=== PATIENT | female | born 1975 | race African-American/Black ===

== ENCOUNTER 2016-09-15 18:17 | Emergency (ER) | payer MEDICAID ==
[~2016-09-15] VITALS: Ht 170.2 cm; Wt 81.6 kg
[2016-09-15] MEDS ORDERED: Lidocaine 2% Visc 15ml soln ORAL ONE (18:45)
[2016-09-15] MEDS ORDERED: Dicyclomine HCl 10mg/5ml oral soln ORAL ONE (18:45)
[2016-09-15] MEDS ORDERED: Mylanta II UD 30ml ORAL ONE (18:45)
--- NOTE | 2016-09-15 18:50 | Emergency Room Report ---
History of Present Illness General Chief Complaint: Abdominal Pain Source: Patient Present Illness HPI The patient is a 41-year-old female who denies any medical history presenting for upper abdominal pain which began 2 days prior. The patient states the pain is described as a 5/10 upper abdominal dull ache and also experiences burning which starts in the abdomen and goes up to the chest. The patient denies known history of GERD. The patient states pain is worsened with food. The patient denies nausea, vomiting, fever, chills, flank pain, vaginal discharge, dysuria, hematuria, shortness of breath, numbness tingling Allergies: Coded Allergies: No Known Allergies (Unverified , 12/27/15) Patient History Past Medical History: see triage record Pertinent Family History: none Last Menstrual Period: 09/08/16 Now: No Reviewed Nursing Documentation: PMH: Agreed, PSxH: Agreed Nursing Documentation-PMH Past Medical History: No Stated History Review of Systems All Other Systems: negative except mentioned in HPI Physical Exam Vital Signs Date Time Temp Pulse Resp B/P Pulse Ox O2 Delivery O2 Flow Rate FiO2 09/15/16 18:21 97.9 65 17 110/62 97 Room Air Sp02 EP Interpretation: reviewed, normal General Appearance: no apparent distress, alert, GCS 15, non-toxic Head: normocephalic, atraumatic Eyes: bilateral eye PERRL, bilateral eye normal inspection ENT: hearing grossly normal, normal pharynx, no angioedema, normal voice Neck: full range of motion, supple/symm/no masses Respiratory: chest non-tender, lungs clear, normal breath sounds, speaking full sentences Cardiovascular #1: regular rate, rhythm, no edema Cardiovascular #2: 2+ carotid (R), 2+ carotid (L), 2+ radial (R), 2+ radial (L) , 2+ dorsalis pedis (R), 2+ dorsalis pedis (L) Gastrointestinal: normal bowel sounds, soft, non-distended, no guarding, no rebound, tenderness - epigastric Rectal: deferred Genitourinary: normal inspection, no CVA tenderness Musculoskeletal: back normal, gait/station normal, normal range of motion, non- tender Neurologic: alert, oriented x3, responsive, motor strength/tone normal, sensory intact, speech normal Psychiatric: judgement/insight normal, memory normal, mood/affect normal, no suicidal/homicidal ideation Reflexes: 3+ bicep (R), 3+ bicep (L), 3+ tricep (R), 3+ tricep (L), 3+ knee (R) , 3+ knee (L) Skin: normal color, no rash, warm/dry, well hydrated Lymphatic: no adenopathy Medical Decision Making PA Attestation Dr. Cortez is my supervising physician. Patient management was discussed with my supervising physician Diagnostic Impression: Primary Impression: GERD (gastroesophageal reflux disease) ER Course The patient is a 40-year-old female presenting for abdominal pain with burning of the chest DDx: GERD, Gastroenteritis, UTI, Appendicitis PE: Vitals WNL. NAD. Abdomen: Normal appearance. Non distended. No ecchymosis. Normal BS.No McBurney point tenderness. No guarding. There is localized tenderness to palpation over the epigastric region only. No CVA tenderness Urinalysis is unremarkable. No signs of infection. Negative The pt is given a GI cocktail with good relief of pain. The patient is discharged home with a prescription for omeprazole and will follow up with primary care physician. The patient is given information regarding certain foods to avoid. ER precautions are given Laboratory Tests Test 09/15/16 18:44 Urine Color Pale yellow Urine Appearance Clear Urine pH 6.5 (4.5-8.0) Urine Specific [place] 1.015 (1.005-1.035) Urine Protein Negative (NEGATIVE) Urine Glucose (UA) Negative (NEGATIVE) Urine Ketones Negative (NEGATIVE) Urine Occult Blood Negative (NEGATIVE) Urine Nitrite Negative (NEGATIVE) Urine Bilirubin Negative (NEGATIVE) Urine Urobilinogen Normal MG/DL (0.0-1.0) Urine Leukocyte Esterase 1+ (NEGATIVE) H Urine RBC 0-2 /HPF (0 - 2) Urine WBC 2-4 /HPF (0 - 2) Urine Squamous Epithelial Cells Moderate /LPF (NONE/OCC) H Urine Bacteria Few /HPF (NONE) Urine HCG, Qualitative Negative Lab Results Impression Urinalysis is unremarkable. No signs of infection. Negative Last Vital Signs Date Time Temp Pulse Resp B/P Pulse Ox O2 Delivery O2 Flow Rate FiO2 09/15/16 18:21 97.9 65 17 110/62 97 Room Air Status: improved Disposition: HOME, SELF-CARE Condition: Improved Scripts Omeprazole (OMEPRAZOLE) 20 Mg Capsule.dr 20 MG ORAL DAILY, #30 CAP Prov: MANUEL VARMA. 09/15/16 MANUEL VARMA Sep 15, 2016 18:49
[2016-09-15 19:03] VITALS: BP 114/71
[2016-09-15 19:44] LABS: APPEARANCE,URINE CLEAR; KETONES,URINE NEGATIVE (NEGATIVE); LEUKOCYTE ESTERASE ,URINE 1+ (NEGATIVE); NITRITE,URINE NEGATIVE (NEGATIVE); PH,URINE 6.5 (4.5-8.0); PROTEIN,URINE NEGATIVE (NEGATIVE); UROBILINOGEN,URINE NORMAL MG/DL (0.0-1.0)
[2016-09-15] MEDS ORDERED: OMEPRAZOLE20 M2 ORAL (19:57)
[2016-09-15 20:09] LABS: BACTERIA,URINE FEW /HPF; RBC,URINE 0-2 /HPF (0 - 2); SQUAMOUS EPITHELIAL CELL,UR MODERATE /LPF (NONE/OCC)
[2016-09-15 20:10] VITALS: BP 111/76
== END 2016-09-15 20:31 | disposition home or self-care (01) ==
LOC: EMR 19:24
DX: K21.9 Gastro-esophageal reflux disease without esophagitis (principal)
CPT/HCPCS: 81003; 81025; 99282

== ENCOUNTER 2017-05-03 21:54 | Emergency (ER) | payer MEDICAID ==
[~2017-05-03] VITALS: Ht 170.2 cm; Wt 83.0 kg
[~2017-05-03 21:54] MED LIST: OMEPRAZOLE20 M2 ORAL
[2017-05-03] MEDS ORDERED: NKM (22:00)
[2017-05-03] MEDS ORDERED: Ketorolac 30mg Inj IV ONE (22:15)
[2017-05-03] MEDS ORDERED: Aspirin Baby 81mg ORAL ONE (22:15)
--- NOTE | 2017-05-03 22:26 | Emergency Room Report ---
History of Present Illness General Chief Complaint: Back Injury Source: Patient Present Illness HPI Is a 41-year-old female with no significant past medical history. She presents with chief complaint of left upper back pain radiating to the front. Onset for last 2 days. On and off. The pain came in is severe and she has hard time catching her breath. No fever or chills. No nausea no vomiting. No exertional component. Worse with certain movement. No diaphoresis. No leg edema. No family history of DVT or PE. Not on breath control pill. Allergies: Coded Allergies: No Known Allergies (Unverified , 05/03/17) Patient History Past Medical History: see triage record, old chart reviewed Past Surgical History: other Pertinent Family History: none Social History: Denies: smoking Last Menstrual Period: 3 days ago Now: No Immunizations: other Reviewed Nursing Documentation: PMH: Agreed, PSxH: Agreed Nursing Documentation-PM Past Medical History: No Stated History Review of Systems Eye: Denies: eye pain, blurred vision ENT: Denies: ear pain, nose congestion, throat swelling Respiratory: Denies: cough, shortness of breath Cardiovascular: Denies: chest pain, palpitations Gastrointestinal: Denies: abdominal pain, diarrhea, nausea, vomiting Musculoskeletal: Denies: back pain, joint pain Skin: Denies: rash Neurological: Denies: headache, numbness Endocrine: Denies: increased thirst, increased urine Hematologic/Lymphatic: Denies: easy bruising All Other Systems: negative except mentioned in HPI Physical Exam Vital Signs Date Time Temp Pulse Resp B/P (MAP) Pulse Ox O2 Delivery O2 Flow Rate FiO2 05/03/17 21:55 98.4 68 16 132/85 98 Room Air vitals normal Sp02 EP Interpretation: reviewed, normal General Appearance: well appearing, no apparent distress, alert Head: normocephalic, atraumatic Eyes: bilateral eye PERRL, bilateral eye EOMI ENT: hearing grossly normal, normal pharynx Neck: full range of motion, supple, no meningismus Respiratory: chest non-tender, lungs clear, normal breath sounds Cardiovascular #1: regular rate, rhythm, no murmur Gastrointestinal: normal bowel sounds, non tender, no mass, no organomegaly, no bruit, non-distended Musculoskeletal: back normal, gait/station normal, normal range of motion Psychiatric: mood/affect normal Skin: warm/dry Medical Decision Making Diagnostic Impression: Primary Impression: Upper back strain Qualified Codes: S29.012A - Strain of muscle and tendon of back wall of thorax , initial encounter Additional Impression: Chest pain Qualified Codes: R07.9 - Chest pain, unspecified ER Course Patient with atypical chest pain. No his of ACS, PE, dissection, pneumonia to name a few. She is pain-free now. We'll discharge home. Lab Results Impression labs normal EKG Diagnostic Results EKG Time: 22:26 Rate: normal Rhythm: NSR ST Segments: no acute changes Rhythm Strip Diag. Results Rhythm Strip Time: 22:26 EP Interpretation: yes Rate: 58 Rhythm: NSR Chest X-Ray Diagnostic Results Chest X-Ray Diagnostic Results : Chest X-Ray Ordered: Yes # of Views/Limited/Complete: 1 View Indication: Chest Pain EP Interpretation: Yes Interpretation: no consolidation, no effusion, no pneumothorax Impression: No acute disease Interpreting ER Provider: Electronically signed by Brennan Barraza MD CT/MRI/US Diagnostic Results CT/MRI/US Diagnostic Results : Imaging Test Ordered: CT chest Impression negative per radiologist Last Vital Signs Date Time Temp Pulse Resp B/P (MAP) Pulse Ox O2 Delivery O2 Flow Rate FiO2 05/03/17 21:55 98.4 68 16 132/85 98 Room Air Status: improved Disposition: HOME, SELF-CARE Condition: Stable Scripts Ibuprofen* (MOTRIN*) 600 Mg Tablet 600 MG ORAL THREE TIMES A DAY, #30 TAB 0 Refills Prov: BRENNAN BARRAZA M.D. 05/04/17 Patient Instructions: Back Pain, Adult Additional Instructions: Followup with your DrClarke in 7 days. Return if symptom worsen. BRENNAN BARRAZA M.D. May 03, 2017 22:26
[2017-05-03 23:03] LABS: BASOPHILS % (AUTO) 1.8 % (0.0-2.0); EOSINOPHILS % (AUTO) 3.6 % (0.0-3.0); LYMPHOCYTES % (AUTO) 38.4 % (20.0-45.0); MEAN CORPUSCULAR HEMOGLOBIN 30.3 PG (27.0-31.0); MEAN CORPUSCULAR VOLUME 87 FL (80-99); MEAN PLATELET VOLUME 8.7 FL (6.5-10.1); MONOCYTES % (AUTO) 7.1 % (1.0-10.0); PLATELET COUNT 203 K/UL (150-450); RED BLOOD COUNT 4.17 M/UL (4.20-5.40); RED CELL DISTRIBUTION WIDTH 12.1 % (11.6-14.8); TROPONIN I < 0.30 ng/mL (<=0.30)
[2017-05-03 23:06] LABS: ALANINE AMINOTRANSFERASE 21 U/L (3-33); ALBUMIN/GLOBULIN RATIO 1.1 (1.0-2.7); ANION GAP 11 (5-15); ASPARTATE AMINO TRANSFERASE 24 U/L (5-40); CALCIUM 9.5 mg/dL (8.6-10.2); CARBON DIOXIDE 27 mEQ/L (20-30); CHLORIDE 101 mEQ/L (98-107); GLOMERULAR FILTRATION RATE > 60 mL/min (>60); HEMOLYSIS 4; POTASSIUM 3.8 mEQ/L (3.4-4.9); SODIUM 139 mEQ/L (135-145); TOTAL PROTEIN 7.6 g/dL (6.6-8.7)
[2017-05-03 23:16] LABS: CKMB 2.5 ng/mL (< 3.8)
[2017-05-03 23:20] LABS: APPEARANCE,URINE CLEAR; KETONES,URINE NEGATIVE (NEGATIVE); NITRITE,URINE NEGATIVE (NEGATIVE); PH,URINE 7 (4.5-8.0); PROTEIN,URINE NEGATIVE (NEGATIVE); UROBILINOGEN,URINE NORMAL MG/DL (0.0-1.0)
[2017-05-03 23:31] LABS: LEUKOCYTE ESTERASE ,URINE 1+ (NEGATIVE)
[2017-05-03 23:32] LABS: BACTERIA,URINE FEW /HPF; RBC,URINE 0 /HPF (0 - 2); SQUAMOUS EPITHELIAL CELL,UR MODERATE /LPF (NONE/OCC); WBC,URINE 0-2 /HPF (0 - 2)
[2017-05-04 01:49] VITALS: BP 128/89
[2017-05-04 01:50] VITALS: BP 128/89
[2017-05-04] MEDS ORDERED: IBUPROFEN600 MG ORAL (01:50)
--- NOTE | 2017-05-04 09:22 | Diagnostic Imaging Report ---
Indication: Chest pain Technique: Continuous helical transaxial imaging of the chest was obtained from the thoracic inlet to the upper abdomen during rapid intravenous contrast administration. Arterial phase of enhancement obtained. Coronal 2-D reformats were also obtained and maximum intensity projection images in multiple planes. Study obtained in a Siemens sensation [address] Total Dose length Product (DLP): [address] Dose Index Volume (CTDIvol): 12.6x2, 24, 28 mGy Comparison: None Findings: Pulmonary artery is well opacified. There is no evidence of pulmonary embolus, dissection or aneurysm. The heart is unremarkable. The lungs are essentially clear. No adenopathy or abnormal fluid collections are demonstrated. Impression: Negative study The CT scanner at [facility] is accredited by the [employer] and the scans are performed using dose optimization techniques as appropriate to a performed exam including Automatic Exposure control.
--- NOTE | 2017-05-04 10:35 | Diagnostic Imaging Report ---
Indication: Chest pain Comparison: None A single view chest radiograph was obtained. Findings: Cardiomediastinal appearance is within normal limits for age. Pulmonary vascularity is appropriate. The diaphragmatic contour is smooth and costophrenic angles are sharp. No pleural effusions are identified. The bones are unremarkable. Impression: No acute findings
== END 2017-05-04 02:00 | disposition home or self-care (01) ==
LOC: EMR 22:30
DX: M54.9 Dorsalgia, unspecified (principal); S29.012A Strain of muscle and tendon of back wall of thorax, initial encounter; X58.XXXA Exposure to other specified factors, initial encounter; Y93.9 Activity, unspecified; Y99.9 Unspecified external cause status; R07.9 Chest pain, unspecified
CPT/HCPCS: 36415; 71010; 71275; 80053; 81003; 82550; 82553; 84484; 85025; 85379; 93005; 96374; 99284; J1885; Q9967

== ENCOUNTER 2018-03-14 10:46 | Emergency (ER) | payer MEDICAID ==
[~2018-03-14] VITALS: Ht 170.2 cm; Wt 72.6 kg
[~2018-03-14 10:46] MED LIST changes: +IBUPROFEN600 MG ORAL; +NKM
[2018-03-14 10:51] VITALS: BP 121/75
[2018-03-14 12:30] VITALS: BP 121/75
--- NOTE | 2018-03-14 22:16 | Emergency Room Report ---
History of Present Illness General Chief Complaint: Upper Extremity Injury Source: Patient Present Illness HPI This patient left prior to evaluation by on coming medical provider. Allergies: Coded Allergies: No Known Allergies (Unverified , 05/03/17) Patient History Last Menstrual Period: 02/27/18 Now: No Para: 2 Physical Exam Vital Signs Date Time Temp Pulse Resp B/P (MAP) Pulse Ox O2 Delivery O2 Flow Rate FiO2 03/14/18 10:51 97.9 58 18 121/75 95 Room Air 97.9 Medical Decision Making PA Attestation Dr. León is my supervising Physician whom patient management has been discussed with. ER Course This patient left prior to evaluation by on coming medical provider. Last Vital Signs Date Time Temp Pulse Resp B/P (MAP) Pulse Ox O2 Delivery O2 Flow Rate FiO2 03/14/18 10:51 97.9 58 18 121/75 95 Room Air 97.9 Disposition: LEFT W/OUT BEING SEEN Condition: Unknown Referrals: NON PHYSICIAN (PCP) Teagan Braden Mar 14, 2018 22:16
== END 2018-03-14 12:30 | disposition left against medical advice (07) ==
LOC: EMR 12:27
DX: S49.91XA Unspecified injury of right shoulder and upper arm, initial encounter (principal); Z53.21 Procedure and treatment not carried out due to patient leaving prior to being seen by health care provider
CPT/HCPCS: 99281

== ENCOUNTER 2018-05-27 23:29 | Emergency (ER) | payer MEDICAID ==
[~2018-05-27] VITALS: Ht 170.2 cm; Wt 79.4 kg
[2018-05-27 23:45] VITALS: BP 116/80
--- NOTE | 2018-05-28 01:07 | Emergency Room Report ---
History of Present Illness General Chief Complaint: Pain Source: Patient Present Illness HPI 42-year-old female presents ED complaining of right leg pain. States she's had this pain for the last 2-3 weeks. states that pain is dull, 5 out of 10, radiating down the leg. Cannot recall a specific injury but states that just prior to onset of pain she did work out vigorously. States that pain is not always there but came on while she was driving today so she came to the ER. Denies pain at this time. Denies any leg swelling. Denies any difficulty ambulating. No other aggravating relieving factors. Denies any other associated symptoms Allergies: Coded Allergies: No Known Allergies (Unverified , 05/03/17) Patient History Past Medical History: none Past Surgical History: none Pertinent Family History: none Social History: Denies: smoking, alcohol use, drug use Last Menstrual Period: 05/19/2018 Now: No Para: 2 Immunizations: UTD Reviewed Nursing Documentation: PMH: Agreed; PSxH: Agreed Nursing Documentation-PMH Past Medical History: No Stated History Review of Systems All Other Systems: negative except mentioned in HPI Physical Exam Vital Signs Date Time Temp Pulse Resp B/P (MAP) Pulse Ox O2 Delivery O2 Flow Rate FiO2 05/27/18 23:37 97.9 59 16 129/76 99 Room Air 97.9 Sp02 EP Interpretation: reviewed General Appearance: normal inspection Head: normocephalic ENT: normal ENT inspection Neck: normal inspection Respiratory: normal inspection Cardiovascular #1: normal inspection Gastrointestinal: normal inspection Rectal: deferred Genitourinary: no CVA tenderness Musculoskeletal: back normal, gait/station normal, normal range of motion, non- tender Neurologic: alert, oriented x3, responsive, motor strength/tone normal, sensory intact, speech normal Psychiatric: normal inspection Skin: normal inspection Lymphatic: normal inspection Medical Decision Making Diagnostic Impression: Primary Impression: Leg pain Qualified Codes: M79.604 - Pain in right leg ER Course Hospital Course 42 yo F presents to ED c/o R leg pain, R knee pain. no injury Differential diagnoses include: DVT, bakers cyst, muscle strain Clinical course Patient placed on stretcher after initial history and physical I ordered US R knee, DVT US Knee US shows no evidence of bakers cyst Doppler ultrasound shows no evidence of DVT Likely Strain. Reassurance given. Patient safe for discharge. I will provide orthopedic referral. I will provide prescriptions for ibuprofen and Robaxin I. I feel this is a highly complex case requiring extensive working including EKG/Rhythm strip, Xray/CT/US, Blood/urine lab work, repeat exams while in ED, and administration of strong opiates/narcotics for pain control, admission to hospital or close patient follow up. Diagnosis - leg pain Stable and discharged to home with Rx Motrin, Robaxin. Followup with PMD. Return to ED if symptoms recur or worsen CT/MRI/US Diagnostic Results CT/MRI/US Diagnostic Results #1: Imaging Test Ordered: Knee US Impression no evidence of bakers cyst CT/MRI/US Diagnostic Results #2: Imaging Test Ordered: Venous Duplex Impression no DVT Last Vital Signs Date Time Temp Pulse Resp B/P (MAP) Pulse Ox O2 Delivery O2 Flow Rate FiO2 05/27/18 23:45 97.9 61 17 116/80 99 Room Air 97.9 Status: improved Disposition: HOME, SELF-CARE Condition: Stable Scripts Ibuprofen* (MOTRIN*) 600 Mg Tablet 600 MG ORAL Q8H PRN for For Pain, #30 TAB 0 Refills Prov: López Cortez MD 05/28/18 Methocarbamol* (ROBAXIN-750*) 750 Mg Tablet 750 MG PO TID, #21 TAB 0 Refills Prov: López Cortez MD 05/28/18 Referrals: NON PHYSICIAN (PCP) López Cortez MD May 28, 2018 01:07
[2018-05-28] MEDS ORDERED: IBUPROFEN600 MG ORAL (01:40)
[2018-05-28] MEDS ORDERED: ROBAXIN-750750 MG PO (01:40)
[2018-05-28 02:05] VITALS: BP 131/86
[2018-05-28 02:11] VITALS: BP 131/86
== END 2018-05-28 02:13 | disposition home or self-care (01) ==
LOC: EMR 23:47
DX: M79.604 Pain in right leg (principal)
CPT/HCPCS: 93971; 99284

== ENCOUNTER 2018-11-26 15:43 | Emergency (ER) | payer MEDICAID ==
[~2018-11-26] VITALS: Ht 172.7 cm; Wt 79.8 kg
[~2018-11-26 15:43] MED LIST changes: +ROBAXIN-750750 MG PO
[2018-11-26 16:00] VITALS: BP 132/84
--- NOTE | 2018-11-26 16:00 | NUR ---
ED Nurse Note: Patient walked in to ER c/o Lt arm pain 5/10. pt aao x4 and she used to work for [employer] which requires heavy lifting. ski clean and intact. pt denied any injury or trauma. VSS
--- NOTE | 2018-11-26 16:10 | NUR ---
ED Nurse Note: ERMD at bedside and assessing patient.
--- NOTE | 2018-11-26 16:23 | NUR ---
Note vinny in EDM - 11/26/18 at 1626 by [email or web address] ED Nurse Note: Pt has shunt on Lt upper arm and bruit asculated. pt had 1 small BM incontinent and diaper was removed and pt was cleaned.
[2018-11-26] MEDS ORDERED: IBUPROFEN600 MG ORAL (17:13)
[2018-11-26 17:20] VITALS: BP 132/84
--- NOTE | 2018-11-26 17:26 | NUR ---
ER DISCHARGE NOTE:angella wrap placed on left elbow Patient is cleared to be discharged per ERMD, pt is aox4, on room air, with stable vital signs. pt was given dc and prescription instructions, pt was able to verbalize understanding, pt is able to ambulate with steady gait. pt took all belongings.
--- NOTE | 2018-11-26 18:25 | Emergency Room Report ---
History of Present Illness General Chief Complaint: Pain Source: Patient Present Illness HPI 43-year-old female presents ED for evaluation. Patient complaining of left elbow pain. Started a few weeks ago. Denies any fall or injury. Anus dull, 7 out of 10, nonradiating. States there is pain with flexion and extension of her elbow. 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 States that she used to work at [employer] but stopped because of strain on her joints. No other aggravating relieving factors. Denies any other associated symptoms Allergies: Coded Allergies: No Known Allergies (Unverified , 11/26/18) Patient History Past Medical History: none Past Surgical History: none Pertinent Family History: none Social History: Denies: smoking, alcohol use, drug use Last Menstrual Period: currently Now: No Immunizations: UTD Reviewed Nursing Documentation: PMH: Agreed; PSxH: Agreed Nursing Documentation-PMH Past Medical History: No Stated History Review of Systems All Other Systems: negative except mentioned in HPI Physical Exam Vital Signs Date Time Temp Pulse Resp B/P (MAP) Pulse Ox O2 Delivery O2 Flow Rate FiO2 11/26/18 15:51 98.2 62 16 132/84 98 Room Air Sp02 EP Interpretation: reviewed, normal General Appearance: no apparent distress, alert, GCS 15, non-toxic Head: normocephalic Eyes: bilateral eye normal inspection, bilateral eye PERRL ENT: normal ENT inspection Neck: normal inspection Respiratory: normal inspection Cardiovascular #1: normal inspection Gastrointestinal: normal inspection Rectal: deferred Genitourinary: no CVA tenderness Musculoskeletal: tender - L elbow Neurologic: alert, oriented x3, responsive, motor strength/tone normal, sensory intact, speech normal Psychiatric: normal inspection Skin: normal inspection Lymphatic: normal inspection Procedures Splinting Splinting : Consent: Verbal Pre-Made Type: PRISCILLA wrap - L elbow Pre-Proc Neuro Vasc Exam: normal Post-Proc Neuro Vasc Exam: normal Patient Tolerated: Well Complications: None Medical Decision Making Diagnostic Impression: Primary Impression: Elbow pain Qualified Codes: M25.522 - Pain in left elbow ER Course Hospital Course 43-year-old F presents to ED complaining of L elbow pain Differential diagnoses include: Fracture, dislocation, sprain, contusion Clinical course Patient placed on stretcher. After initial history and physical, I ordered xrays L elbow Xrays read shows no acute fracture/dislocation. placed in priscilla wrap Discussed findings with patient. Likely ligamentous. Recommended conservative therapy with ice, NSAIDs, modified activity. Safe for discharge close outpatient follow-up. we'll provide Ortho referrals Diagnosis - elbow pain Stable and discharged to home with prescription for Motrin. apply ice, keep elevated. weight bear as tolerated. Followup with PMD/ortho. Return to ED if symptoms recur or worsen Other X-Ray Diagnostic Results Other X-Ray Diagnostic Results : X-Ray ordered: L elbow # of Views/Limited Vs Complete: 3 View Indication: Pain EP Interpretation: Yes Interpretation: no dislocation, no soft tissue swelling, no fractures Impression: No acute disease Electronically Signed by: Electronically signed by López Cortez MD Last Vital Signs Date Time Temp Pulse Resp B/P (MAP) Pulse Ox O2 Delivery O2 Flow Rate FiO2 11/26/18 17:20 98.2 77 16 132/84 98 Room Air Status: improved Disposition: HOME, SELF-CARE Condition: Stable Scripts Ibuprofen* (MOTRIN*) 600 Mg Tablet 600 MG ORAL Q8H PRN for For Pain, #30 TAB 0 Refills Prov: López Cortez MD 11/26/18 [facility] 24 hour /7 days a week by Appointment Only [address] [place] [id number] Patient Instructions: Petrona Elbow, [id number] López Cortez MD Nov 26, 2018 18:25
--- NOTE | 2018-11-27 19:15 | Diagnostic Imaging Report ---
Indication: Pain Findings: 3 views of the left elbow were obtained. No acute fractures, malalignment, erosions or periostitis are identified. Soft tissues are unremarkable. Impression: No acute injury
== END 2018-11-26 17:20 | disposition home or self-care (01) ==
LOC: EMR 16:35
DX: M25.522 Pain in left elbow (principal)
CPT/HCPCS: 99283

== ENCOUNTER 2019-03-22 16:57 | Emergency (ER) | payer MEDICAID ==
[~2019-03-22] VITALS: Ht 170.2 cm; Wt 77.1 kg
[2019-03-22 17:02] VITALS: BP 122/77
--- NOTE | 2019-03-22 17:47 | Emergency Room Report ---
History of Present Illness General Chief Complaint: Pain Source: Patient Present Illness HPI 43-year-old female presents to the emergency department complaining of 9 out of 10 severity localized right knee pain x2 weeks. Patient reports swelling and pain upon standing. Patient denies appreciable trauma or fall she does state her symptoms began after doing a lot of long hike in [place]. Patient denies history of arthritis, gout or STDs. Patient denies erythema warmth or pain with flexion of the knee. Denies open wounds or bleeding to the affected knee or adjacent to the affected knee. Denies numbness tingling or loss of sensation or gross motor movements of the extremities, incontinence of bowel or bladder. Denies CP, Palpitations, LOC, AMS, dizziness, Changes in Vision, weakness or a sudden severe headache. Allergies: Coded Allergies: No Known Allergies (Unverified , 11/26/18) Patient History Past Medical History: see triage record Past Surgical History: none Pertinent Family History: none Last Menstrual Period: 03/14/19 Now: No Reviewed Nursing Documentation: PMH: Agreed; PSxH: Agreed Nursing Documentation-PMH Past Medical History: No Stated History Review of Systems All Other Systems: negative except mentioned in HPI Physical Exam Vital Signs Date Time Temp Pulse Resp B/P (MAP) Pulse Ox O2 Delivery O2 Flow Rate FiO2 03/22/19 17:02 98.8 70 21 122/77 96 Room Air Sp02 EP Interpretation: reviewed, normal General Appearance: no apparent distress, alert, GCS 15, non-toxic Head: normocephalic, atraumatic Eyes: bilateral eye normal inspection, bilateral eye PERRL ENT: hearing grossly normal, normal voice Neck: full range of motion Respiratory: lungs clear, normal breath sounds, speaking full sentences Cardiovascular #1: regular rate, rhythm, no edema, normal capillary refill Musculoskeletal: gait/station normal, normal range of motion, swelling - anterior right knee, FROM, no erythema, no clicking, no increased laxity, no significant warmth. able to weight bear and walk. Neurologic: alert, oriented x3, responsive, motor strength/tone normal, sensory intact, speech normal, grossly normal Psychiatric: judgement/insight normal Skin: no rash, normal color Medical Decision Making PA Attestation Dr. Madrigal is my supervising Physician whom patient management has been discussed with. Diagnostic Impression: Primary Impression: Knee pain, right Qualified Codes: M25.561 - Pain in right knee Additional Impression: Knee effusion, right ER Course 43-year-old female presents to the emergency department complaining of 9 out of 10 severity localized right knee pain x2 weeks. Patient reports swelling and pain upon standing. Patient denies appreciable trauma or fall she does state her symptoms began after doing a lot of long hike in [place]. Patient denies history of arthritis, gout or STDs. Patient denies erythema warmth or pain with flexion of the knee. Denies open wounds or bleeding to the affected knee or adjacent to the affected knee. Denies numbness tingling or loss of sensation or gross motor movements of the extremities, incontinence of bowel or bladder. Denies CP, Palpitations, LOC, AMS, dizziness, Changes in Vision, weakness or a sudden severe headache. Ddx considered but are not limited to Fracture, dislocation, contusion, Sprain/ Strain/Spasm, Vital signs: are WNL, pt. is afebrile H&PE are most consistent with musculoskeletal injury will perform imaging to r/ o fractures/dislocations. ORDERS: - X-ray Right knee - negative for fx, Dislocation, or significant soft tissue injury, per preliminary read in ED, and signed by GIO Braden, my supervising physician has reviewed, and agrees with my interpretation. ED INTERVENTIONS: - Motrin PO -Mukesh wrap applied by field evidence technician. Pt. remains neurovascularly intact. DISCHARGE: At this time pt. is stable for d/c to home. Will provide printed patient care instructions, and any necessary prescriptions. Care plan and follow up instructions have been discussed with the patient prior to discharge. Other X-Ray Diagnostic Results Other X-Ray Diagnostic Results : X-Ray ordered: Right Knee # of Views/Limited Vs Complete: 3 View Indication: Pain EP Interpretation: Yes GIO Xray: Interpretation reviewed, by supervising MD, and agrees with findings. Interpretation: no dislocation, no soft tissue swelling, no fractures Impression: No acute disease Electronically Signed by: Teagan Braden PA-C Last Vital Signs Date Time Temp Pulse Resp B/P (MAP) Pulse Ox O2 Delivery O2 Flow Rate FiO2 03/22/19 17:02 98.8 70 21 122/77 (92) 96 Room Air Disposition: HOME, SELF-CARE Condition: Stable Scripts Naproxen* (NAPROXEN*) 500 Mg Tablet 500 MG ORAL TWICE A DAY for 15 Days, #30 TAB Prov: Teagan Braden 03/22/19 Departure Forms: Return to Work Return to Work Date: Mar 26, 2019 Other Restrictions: May return Sooner if Symptoms have resolved. Return to Full Activity: Mar 26, 2019 Patient Instructions: Knee Effusion, [id number], Knee Pain, [id number] Additional Instructions: Take medications as directed. Follow up with an [facility] in 3-5 days, even if your symptoms have resolved. If symptoms persist MRI may be required at the discretion of your PCP or Ortho Specialist. --Please review list of primary care clinics, if you do not already have a primary care provider who can give you an Orthopedic Referral. Return sooner to ED if new symptoms occur, or current symptoms become worse. Do not drink alcohol, drive, or operate heavy machinery while taking Leroy as this may cause drowsiness. - Please note that this Emergency Department Report was dictated using [employer]ash[employer] coordinator technology software, occasionally this can lead to erroneous entry secondary to interpretation by the dictation equipment. Teagan Braden Mar 22, 2019 17:47
[2019-03-22] MEDS ORDERED: NAPROXEN500 M2 ORAL (18:31)
[2019-03-22 18:39] VITALS: BP 122/77
--- NOTE | 2019-03-23 11:12 | Diagnostic Imaging Report ---
Indication: Pain Knee pain/trauma 3 views of the right knee were obtained. Findings: No acute fracture, malalignment, or joint effusion are identified. Impression: Negative for acute findings.
== END 2019-03-22 18:39 | disposition home or self-care (01) ==
LOC: EMR 17:39
DX: M25.561 Pain in right knee (principal); M25.461 Effusion, right knee
CPT/HCPCS: 96372; 99283

== ENCOUNTER 2020-02-13 01:06 | Emergency (ER) | payer MEDICAID, OTHER ==
[~2020-02-13] VITALS: Ht 170.2 cm; Wt 80.7 kg
[~2020-02-13 01:06] MED LIST changes: +NAPROXEN500 M2 ORAL
[2020-02-13 01:27] VITALS: BP 132/85
[2020-02-13] MEDS ORDERED: EUCERIN CREME454 GM TP (01:30)
[2020-02-13] MEDS ORDERED: CEPHALEXIN500 MG ORAL (01:30)
[2020-02-13] MEDS ORDERED: HYDROCORTISONE-57 GM TP (01:30)
--- NOTE | 2020-02-13 01:41 | Emergency Room Report ---
History of Present Illness General Chief Complaint: Skin Rash/Abscess Source: Patient Present Illness HPI Patient is a 44-year-old female presents to the ER complaining of rash. Patient states that she started having some dry spots on her back and took some homemade cream and placed on her skin. Since then she complains of worsening dryness and itchiness of her skin. She states that now is flaking off. She denies any fever or chills. She denies any history of diabetes. She denies any chest pain or shortness of breath. 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 Patient History Reviewed Nursing Documentation: PMH: Agreed; PSxH: Agreed Nursing Documentation-PMH Past Medical History: No Stated History Review of Systems All Other Systems: negative except mentioned in HPI Physical Exam Vital Signs Date Time Temp Pulse Resp B/P (MAP) Pulse Ox O2 Delivery O2 Flow Rate FiO2 02/13/20 01:23 99.0 89 23 132/85 (101) 100 Room Air Sp02 EP Interpretation: reviewed, normal General Appearance: no apparent distress, alert, GCS 15, non-toxic Head: normocephalic, atraumatic Eyes: bilateral eye normal inspection, bilateral eye PERRL ENT: hearing grossly normal, normal pharynx, no angioedema, normal voice Neck: full range of motion, supple/symm/no masses Respiratory: chest non-tender, lungs clear, normal breath sounds, speaking full sentences Cardiovascular #1: regular rate, rhythm, no edema Gastrointestinal: normal bowel sounds, non tender, soft, non-distended, no guarding, no rebound Rectal: deferred Genitourinary: normal inspection, no CVA tenderness Musculoskeletal: back normal, normal range of motion, gait/station normal, non- tender Neurologic: alert, motor strength/tone normal, oriented x3, sensory intact, responsive, speech normal Psychiatric: no suicidal/homicidal ideation Skin: other - Dry scaly rash to patient's mid back bilaterally mild erythema on the right side with a little bit of warmth questionable early cellulitis no swelling no discharge Lymphatic: no adenopathy Medical Decision Making Diagnostic Impression: Primary Impression: Dermatitis ER Course Patient presents with dry scaly rash with possible components of early cellulitis due to frequent scratching. Patient started on Keflex. I have also given her topical steroids as well as Eucerin cream. She states that she can follow-up at her clinic in 2 days. After discussing risks and benefits of further diagnostics, treatment plans, as well as indications for and risks of admission, the patient is agreeable to being discharged home. I have explained that their evaluation and treatment in the emergency department today is an important step towards them achieving better health but that their evaluation today is not intended to replace further evaluation and treatment by a physician in their local clinic. I have explained that while the current findings suggest no immediate life threatening emergency they will require further evaluation and treatment by a physician of their choice in their area. They understand that it will be necessary for them to review the final reports of their ED visit with their clinic physician. We have reviewed indications for return to the Emergency Department. I have explained that additional time may need to pass and/or additional testing as an outpatient may be necessary before a definitive diagnosis can be made. They tell me they are willing to follow up as instructed within the timeframe I recommend. They appear to understand what we discussed. Additionally they understand that if they are unable to be seen by an outpatient physician they are welcome, and in fact should, return to the Emergency Department for a repeat evaluation. The patient is stable at time of discharge. Last Vital Signs Date Time Temp Pulse Resp B/P (MAP) Pulse Ox O2 Delivery O2 Flow Rate FiO2 02/13/20 01:27 99.0 89 23 132/85 100 Room Air Disposition: HOME, SELF-CARE Condition: Stable Scripts Lanolin Alcohol/Mo/W.pet/[place]xton (EUCERIN CREME) 454 Gm Cream..g. 454 GM TP BID for 14 Days, GM Prov: Jennifer Alvarado M.D. 02/13/20 Hydrocortisone/Pramoxine (Hydrocortisone/Pramoxine 2.5%-1% Cream*) Y Cr 57 GM TP BID for 14 Days, GM Prov: Jennifer Alvarado M.D. 02/13/20 Cephalexin* (KEFLEX*) 500 Mg Capsule 500 MG ORAL EVERY 8 HOURS for 10 Days, CAP Prov: Jennifer Alvarado M.D. 02/13/20 Patient Instructions: Contact Dermatitis, [id number] Additional Instructions: Please follow-up at your clinic, [facility] in 2 days. The patient was provided with discharge instructions, notified to follow-up with a primary care doctor and or specialist in the next 24-48 hours, and to return to the ED if they have worsening of their symptoms. Please note that this report is being documented using DRAGON technology. This can lead to erroneous entry secondary to incorrect interpretation by the dictating instrument. Jennifer Alvarado M.D. Feb 13, 2020 01:41
[2020-02-13 01:55] VITALS: BP 132/85
== END 2020-02-13 01:55 | disposition home or self-care (01) ==
LOC: EMR 01:42
DX: L30.9 Dermatitis, unspecified (principal)
CPT/HCPCS: 99282